=== PATIENT | male | born 1995 | race Caucasian/White ===

== ENCOUNTER 2021-09-07 22:53 | Emergency (ER) | payer MEDICAID, SELFPAY ==
[2021-09-07 22:59] VITALS: BP 151/106; PULSE 122; RESP 18; TEMP 37.2; O2SAT 96; BMI 41.5
[2021-09-07 23:08] LABS: Glucose, Whole Blood 100 mg/dL (60-115)
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
[2021-09-08 01:04] VITALS: BP 137/70; PULSE 115; RESP 16; O2SAT 96
== END 2021-09-08 01:22 ==
PROVIDERS: Emergency Provider Emergency Medicine
DX: T40.601A Poisoning by unspecified narcotics, accidental (unintentional), initial encounter (principal); Y92.89 Other specified places as the place of occurrence of the external cause; E11.9 Type 2 diabetes mellitus without complications
CPT/HCPCS: 82947; 99283; 99284

== ENCOUNTER 2021-09-08 05:15 | Emergency (ER) | payer MEDICAID, SELFPAY ==
--- NOTE | 2021-09-08 05:22 | ED.GENADULT ---
HPI - General Adult General Stated complaint: TOOK COUGH MEDICINE,NO COMPLAINTS Time Seen by Provider: 09/08/21 05:22 Source: patient, EMS and police Mode of arrival: EMS Limitations: no limitations History of Present Illness HPI narrative: Patient was seen here earlier today for a possible overdose, patient was discharged on police custody. This morning, when patient was in half-way, patient was playing possum, patient states he took 1 tablet of NyQuil. On arrival to the emergency room patient denies suicidal homicidal ideation, patient states he feels otherwise well. Related Data Previous Rx's Medication Instructions Recorded naloxone 4 mg/actuation nasal 4 mg INTRANASAL Q2M PRN #2 ea 09/08/21 spray (Narcan) Allergies Allergy/AdvReac Type Severity Reaction Status Date / Time No Known Allergies Allergy Verified 09/08/21 01:14 Review of Systems Review of Systems: Constitutional : No Weight loss, No Fever, No Chills, No Night Sweats, No Fatigue, No Malaise ENT/Mouth : No Hearing loss, No Ear Pain, No Nasal Congestion, No Sinus Pain, No Hoarseness, No sore throat, No Rhinorrhea, No Swallowing Difficulty Eyes: No Eye Pain, No Swelling, No Redness, No Foreign Body, No Discharge, No Vision Changes Cardiovascular : No Chest Pain, No SOB, No Dyspnea on Exertion, No Orthopnea, No Edema, No Palpitations Respiratory : No Cough, No Sputum, No Wheezing, No Smoke Exposure, No Dyspnea Gastrointestinal : No Nausea, No Vomiting, No Diarrhea, No Constipation, No abdominal Pain, No Hematochezia, No Melena Genitourinary : no irregular bleeding, No Dysuria, No Urinary Frequency, No Hematuria, No Urinary Incontinence, No Urgency, No Flank Pain, No Urinary Flow Changes, No Hesitancy Musculoskeletal : No joint pain, No Myalgias, No Joint Swelling Skin : No Skin Lesions, No rash Neuro : No Weakness, No Numbness, No Paresthesias, No Loss of Consciousness, No Dizziness, No Headache Psych : No Anxiety/Panic, No Depression, No SI/HI/AH/VH, No Social Issues, Heme/Lymph: No Bruising, No Bleeding,No Lymphadenopathy Endocrine : No Polyuria, No Polydipsia, No Temperature Intolerance Physical Exam Const: Other: Appearance: Alert. Oriented X3. No acute distress. Eyes: Pupils equal, round and reactive to light. ENT: Pharynx normal. Neck: Normal inspection. Neck supple. No lymph nodes noted. No crepitus CVS: Normal heart rate and rhythm. Pulses normal. Normal S1 and S2 Respiratory: No respiratory distress. Breath sounds normal. No Wheezing. No rales Abdomen: Soft and nontender. No rigidity. No distention. good BS x4 Skin: Skin warm and dry. Normal skin color. Normal skin turgor. Extremities: No lower extremity edema. No Lacerations. No Rash Neuro: Oriented X 3. No motor deficit. No sensory deficit. Moving all extermities. No slurred speech. Course Course Course Narrative: Patient's physical exam within normal limits, patient has no complaints. Patient ready to be discharged in police custody. Discharge Plan Discharge Clinical Impression: Normal physical exam Patient Disposition: Xfer Other Transfer Details: Police custody Additional Instructions: Please follow-up with your primary care physician tomorrow. If you have any worsening or new symptoms, please return to the emergency room or call 911 Prescriptions: No Action Narcan 4 mg/actuation spray,non-aerosol 4 mg intranasal Q2M PRN (Reason: opioid overdose) Qty: 2 RF: 0
[2021-09-08 05:23] VITALS: BP 138/82; PULSE 100; RESP 16; TEMP 37.1; O2SAT 98; BMI 41.5
== END 2021-09-08 05:42 | disposition other institution (70) ==
PROVIDERS: Emergency Provider Emergency Medicine
DX: R05.9 Cough, unspecified (principal); Z79.899 Other long term (current) drug therapy
CPT/HCPCS: 99283